=== PATIENT | male | born 1960 | race African-American/Black ===

== ENCOUNTER 2019-10-08 23:39 | Emergency (ER) | payer OTHER ==
[~2019-10-08] VITALS: Ht 182.9 cm; Wt 91.0 kg
[2019-10-09] MEDS ORDERED: FOLIC ACID 1 MG, THIAMINE HCL 100 MG, MVI, ADULT NO.1 10 ML in DEXTROSE 5% WATER 1,000 ML IV ONE ×4 (01:45)
[2019-10-09] MEDS ORDERED: LORAZEPAM 2MG/ML CPJ IV ONE (01:45)
[2019-10-09 02:05] LABS: CHLORIDE 98 mEq/L (98-107)
[2019-10-09 02:20] LABS: HEMATOCRIT. 33.2 % (42.0-52.0); HEMOGLOBIN. 11.5 g/dL (14.0-18.0); MEAN CORPUSCULAR HEMOGLOBIN 36.5 pg (28.0-32.0); MEAN PLATELET VOLUME 9.1 fl (7.4-10.4); PLATELET 86 x1000/uL (130-400); RED BLOOD CELL COUNT 3.14 mill/uL (4.7-6.1); RED CELL DISTRIBUTION WIDTH 13.9 % (11.6-14.6)
[2019-10-09 06:49] VITALS: BP 138/86
[2019-10-09 07:14] LABS: PLATELET ESTIMATE DECREASED
== END 2019-10-09 08:00 | disposition home or self-care (01) ==
LOC: ER 23:39
DX: F10.239 Alcohol dependence with withdrawal, unspecified (principal); Y90.9 Presence of alcohol in blood, level not specified; T51.0X1A Toxic effect of ethanol, accidental (unintentional), initial encounter; R00.0 Tachycardia, unspecified; I10 Essential (primary) hypertension; Y93.89 Activity, other specified; Y92.89 Other specified places as the place of occurrence of the external cause
CPT/HCPCS: 36415; 80053; 83735; 84484; 85025; 93005; 96365; 96366; 96375; 99285; J2060; J3411; J3490; J7070